=== PATIENT | female | born 1955 | race Caucasian/White ===

== ENCOUNTER 2022-07-19 19:24 | Inpatient (IN) | payer MEDICARE, BC ==
[~2022-07-19] VITALS: Ht 167.6 cm; Wt 68.2 kg
[2022-07-19 19:41] LABS: BASOPHILS % (AUTO) 0.6 % (0-1); EOSINOPHILS # (AUTO) 0.2 X10'3 (0-0.9); HEMATOCRIT 39.4 % (35.0-45.0); HEMOGLOBIN 13.4 g/dl (12.0-16.0); LYMPHOCYTES # (AUTO) 2.4 X10'3 (1.1-4.8); LYMPHOCYTES % (AUTO) 42.5 % (21-51); MEAN CORPUSCULAR HEMOGLOBIN 29.8 PG (27.0-31.0); MEAN CORPUSCULAR HGB CONC 34.1 g/dL (33.0-36.5); MEAN CORPUSCULAR VOLUME 87.5 FL (78-98); MONOCYTES # (AUTO) 0.7 X10'3 (0-0.9); MONOCYTES % (AUTO) 12.7 % (2-12); NEUTROPHILS # (AUTO) 2.3 X10'3 (1.8-7.7); NEUTROPHILS % (AUTO) 41.2 % (42-75); PLATELET COUNT 233 X10'3 (140-440); RED CELL DISTRIBUTION WIDTH 13.6 % (11.5-14.5); WHITE BLOOD COUNT 5.6 X10'3 (4.5-11.0)
[2022-07-19 19:56] LABS: GLUCOSE 82 MG/DL (70-104); SODIUM 142 MMOL/L (135-145)
[2022-07-19 19:57] LABS: ALANINE AMINOTRANSFERASE 23 U/L (12-78); ALBUMIN 3.7 G/DL (3.4-5.0); ALBUMIN/GLOBULIN RATIO 1.1 (1.1-1.5); ALKALINE PHOSPHATASE 59 IU/L (46-116); ANION GAP 7 (8-16); ASPARTATE AMINO TRANSFERASE 20 U/L (10-37); BILIRUBIN,TOTAL 0.2 MG/DL (0.1-1.0); BLOOD UREA NITROGEN 10 MG/DL (7-18); BUN/CREATININE RATIO 11.9 (10.0-20.0); CALCIUM 8.5 MG/DL (8.5-10.1); CHLORIDE 107 MMOL/L (99-107); CREATININE 0.84 MG/DL (0.40-0.90); POTASSIUM 3.6 MMOL/L (3.5-5.1); TOTAL CARBON DIOXIDE 28.5 MMOL/L (24-32); eGFR 67 ML/MIN
[2022-07-19 20:04] LABS: MAGNESIUM 2.2 MG/DL (1.5-2.4)
[2022-07-19] MEDS ORDERED: cloNIDine 0.1 mg tablet PO STA (20:04)
[2022-07-19] MEDS ORDERED: aspirin 81mg tab.chew PO ONE (21:10)
[2022-07-19] MEDS ORDERED: HYDROcodone/acetaminophen 5mg/325mg tablet PO PRN (21:40)
[2022-07-19] MEDS ORDERED: morphine 2 MG/ML inj. syringe IV PRN ×2 (21:40)
[2022-07-19] MEDS ORDERED: acetaminophen 325mg tablet PO PRN ×2 (21:40)
[2022-07-19] MEDS ORDERED: mag hydrox/Alum hydrox/simeth 30ml oral suspension PO PRN (21:40)
[2022-07-19] MEDS ORDERED: magnesium hydroxide 30ml (MOM) UD suspension PO PRN (21:40)
[2022-07-19] MEDS ORDERED: ondansetron/PF 4mg/2ml inj IV PRN (21:40)
--- NOTE | 2022-07-19 22:06 | NUR ---
Patient is resting comfortably, will be admitted.
[2022-07-19 22:17] LABS: CHOLESTEROL 271 MG/DL (0-200); HDL CHOLESTEROL 45 MG/DL (35-60); LDL CHOLESTEROL 182 MG/DL (50-100); TRIGLYCERIDES 162 MG/DL (20-135)
--- NOTE | 2022-07-19 23:00 | NUR ---
Patient up to bathroom w/o problem.
[2022-07-19] MEDS ORDERED: METO-411 PO (23:12)
[2022-07-19] MEDS ORDERED: ESOM20CA PO (23:12)
[2022-07-19 23:30] VITALS: BP 149/96
--- NOTE | 2022-07-19 23:45 | NUR ---
PAGER ID: [phone] MESSAGE: [id number] [id number] SUNITHA SANDERS PT REQUESTING HER NEXIUM TONIGHT MED REC NEEDS TO BE ADDRESSED ALSO NEURO WAS REQUESTING HER TO BE PUT ON PLAVIX AND HAVE MRI DONE KEVIN [id number]
--- NOTE | 2022-07-20 00:37 | NUR ---
DR SAENZ ORDERED A ONE TIME DOSE OF PATIENT'S NEXIUM PO 20MG AT PATIENT'S REQUEST FOR TONIGHT. DR SAENZ ALSO ORDERED UPON RECOMMENDATION OF TELE-NEUROLOGIST PLAVIX 75MG DAILY FOR [address] SAENZ WAS ALSO MADE AWARE THAT THE MED REC NEEDS TO BE ADDRESSED FOR THIS PATIENT.
[2022-07-20 05:00] VITALS: BP 134/79
--- NOTE | 2022-07-20 06:30 | NUR ---
Patient in room ORTHO 4024. I have received report from Kelin ORTEGA and had the opportunity to ask questions and assume patient care.
[2022-07-20 06:33] LABS: BASOPHILS % (AUTO) 0.6 % (0-1); EOSINOPHILS # (AUTO) 0.2 X10'3 (0-0.9); EOSINOPHILS % (AUTO) 3.8 % (0-6); HEMATOCRIT 36.5 % (35.0-45.0); HEMOGLOBIN 12.6 g/dl (12.0-16.0); LYMPHOCYTES # (AUTO) 1.9 X10'3 (1.1-4.8); MEAN CORPUSCULAR HEMOGLOBIN 30.2 PG (27.0-31.0); MEAN CORPUSCULAR HGB CONC 34.4 g/dL (33.0-36.5); MEAN CORPUSCULAR VOLUME 87.6 FL (78-98); MEAN PLATELET VOLUME 8.3 FL (7.4-10.4); MONOCYTES # (AUTO) 0.5 X10'3 (0-0.9); MONOCYTES % (AUTO) 11.2 % (2-12); NEUTROPHILS # (AUTO) 2.1 X10'3 (1.8-7.7); NEUTROPHILS % (AUTO) 44.4 % (42-75); PLATELET COUNT 197 X10'3 (140-440); RED BLOOD COUNT 4.16 X10'6 (4.20-5.60); RED CELL DISTRIBUTION WIDTH 13.3 % (11.5-14.5); WHITE BLOOD COUNT 4.7 X10'3 (4.5-11.0)
[2022-07-20 06:40] LABS: CHLORIDE 106 MMOL/L (99-107); GLUCOSE 101 MG/DL (70-104); POTASSIUM 3.6 MMOL/L (3.5-5.1); SODIUM 140 MMOL/L (135-145); TOTAL CARBON DIOXIDE 27.5 MMOL/L (24-32)
[2022-07-20 06:41] LABS: ALBUMIN 3.2 G/DL (3.4-5.0); ANION GAP 7 (8-16); BLOOD UREA NITROGEN 8 MG/DL (7-18); BUN/CREATININE RATIO 10.8 (10.0-20.0); CALCIUM 8.8 MG/DL (8.5-10.1); CHOL/HDL RATIO 5.2 (0.00-4.99); CHOLESTEROL 233 MG/DL (0-200); CREATININE 0.74 MG/DL (0.40-0.90); HDL CHOLESTEROL 45 MG/DL (35-60); LDL CHOLESTEROL 164 MG/DL (50-100); TRIGLYCERIDES 92 MG/DL (20-135); eGFR 78 ML/MIN
--- NOTE | 2022-07-20 07:09 | NUR ---
Problems reprioritized. Patient report given, questions answered & plan of care reviewed with JAMILA TOVAR.
[2022-07-20] MEDS: aspirin 325mg tablet, delayed-release (Ecotrin) PO SCH (08:00)
[2022-07-20] MEDS: docusate sod 100mg capsule PO SCH ×2 (08:00→19:34)
[2022-07-20] MEDS: pantoprazole 40mg Tablet.DR PO SCH ×2 (09:36→19:34)
[2022-07-20] MEDS: clopidogrel 75mg tablet PO SCH (09:37)
[2022-07-20] MEDS: metoprolol succinate 25mg (24-HOUR) SR. Tablet PO SCH (09:38)
[2022-07-20] MEDS ORDERED: iohexol 350MG/ML 100ml bottle IV ONE (10:33)
[2022-07-20] MEDS ORDERED: magnesium 4gm in 100ml NS 100 ML IV PRN (14:20)
[2022-07-20] MEDS ORDERED: potassium Cl 20 mEq SR tablet PO PRN ×2 (14:20)
[2022-07-20] MEDS ORDERED: potassium Cl 40MEQ/1/2NS 520ml 520 ML IV PRN (14:20)
[2022-07-20] MEDS ORDERED: magnesium 2GM in 50ml NS 50 ML IV PRN (14:20)
[2022-07-20] MEDS ORDERED: magnesium Cl slow-release 64mg tablet PO PRN (14:20)
[2022-07-20] MEDS: atorvastatin 20mg tablet PO SCH (15:49)
--- NOTE | 2022-07-20 17:00 | NUR ---
I have reviewed and confirmed interventions, assessments performed and documentation by Celina Landry LVN.
--- NOTE | 2022-07-20 17:25 | NUR ---
Patient alert. VSS. No acute changes this shift. Dr. Sharpe spoke to patient r/t allergies to Simvastatin and recommended Atorvastatin 40 mg PO. Patient aware of side affects to look for. Medication given at 1400 and patient has denied any adverse effects r/t to medication. All safety measures in place and call light and fresh water at bedside. Will continue to monitor.
[2022-07-20 18:00] VITALS: BP 146/94
--- NOTE | 2022-07-20 18:00 | NUR ---
Patient in room ORTHO 4024. I have received report from Celina MARINO and had the opportunity to ask questions and assume patient care.
[2022-07-20] MEDS: K and/or MAG REPLACEMENT MC SCH (19:10)
[2022-07-20] MEDS: heparin, porcine 5000 units/ml vial SQ SCH (19:35)
--- NOTE | 2022-07-20 20:00 | NUR ---
Pt ambulated 300 ft independently this evening. She tolerated this well
[2022-07-20 22:00] VITALS: BP 151/90
--- NOTE | 2022-07-21 06:05 | NUR ---
Problems reprioritized. Patient report given, questions answered & plan of care reviewed with Kari ORTEGA.
[2022-07-21 06:56] LABS: BASOPHILS % (AUTO) 0.6 % (0-1); EOSINOPHILS # (AUTO) 0.1 X10'3 (0-0.9); EOSINOPHILS % (AUTO) 3.2 % (0-6); HEMATOCRIT 38.9 % (35.0-45.0); HEMOGLOBIN 13.1 g/dl (12.0-16.0); LYMPHOCYTES # (AUTO) 1.8 X10'3 (1.1-4.8); LYMPHOCYTES % (AUTO) 43.8 % (21-51); MEAN CORPUSCULAR HEMOGLOBIN 29.5 PG (27.0-31.0); MEAN CORPUSCULAR HGB CONC 33.8 g/dL (33.0-36.5); MEAN CORPUSCULAR VOLUME 87.3 FL (78-98); MEAN PLATELET VOLUME 8.5 FL (7.4-10.4); MONOCYTES # (AUTO) 0.4 X10'3 (0-0.9); MONOCYTES % (AUTO) 10.8 % (2-12); NEUTROPHILS # (AUTO) 1.7 X10'3 (1.8-7.7); NEUTROPHILS % (AUTO) 41.6 % (42-75); PLATELET COUNT 212 X10'3 (140-440); RED BLOOD COUNT 4.45 X10'6 (4.20-5.60); RED CELL DISTRIBUTION WIDTH 13.6 % (11.5-14.5); WHITE BLOOD COUNT 4.2 X10'3 (4.5-11.0)
[2022-07-21 07:00] VITALS: BP 116/58
[2022-07-21 07:04] LABS: ALANINE AMINOTRANSFERASE 18 U/L (12-78); ALBUMIN 3.4 G/DL (3.4-5.0); ALBUMIN/GLOBULIN RATIO 1.1 (1.1-1.5); ALKALINE PHOSPHATASE 55 IU/L (46-116); ANION GAP 8 (8-16); ASPARTATE AMINO TRANSFERASE 19 U/L (10-37); BILIRUBIN,TOTAL 0.4 MG/DL (0.1-1.0); BLOOD UREA NITROGEN 8 MG/DL (7-18); BUN/CREATININE RATIO 9.4 (10.0-20.0); CALCIUM 8.8 MG/DL (8.5-10.1); CHLORIDE 106 MMOL/L (99-107); CREATININE 0.85 MG/DL (0.40-0.90); GLUCOSE 99 MG/DL (70-104); MAGNESIUM 2.3 MG/DL (1.5-2.4); PHOSPHORUS 4.6 MG/DL (2.3-4.5); POTASSIUM 3.6 MMOL/L (3.5-5.1); SODIUM 142 MMOL/L (135-145); TOTAL CARBON DIOXIDE 27.9 MMOL/L (24-32); TOTAL PROTEIN 6.4 G/DL (6.4-8.2); eGFR 67 ML/MIN
--- NOTE | 2022-07-21 07:04 | NUR ---
Patient in room ORTHO 4024. I have received report from MICH ORTEGA and had the opportunity to ask questions and assume patient care.
[2022-07-21] MEDS: heparin, porcine 5000 units/ml vial SQ SCH (08:00)
[2022-07-21] MEDS: K and/or MAG REPLACEMENT MC SCH (08:00)
[2022-07-21] MEDS: clopidogrel 75mg tablet PO SCH (08:54)
[2022-07-21] MEDS: aspirin 325mg tablet, delayed-release (Ecotrin) PO SCH (08:54)
[2022-07-21] MEDS: docusate sod 100mg capsule PO SCH (08:54)
[2022-07-21] MEDS: metoprolol succinate 25mg (24-HOUR) SR. Tablet PO SCH (08:54)
[2022-07-21] MEDS: pantoprazole 40mg Tablet.DR PO SCH (08:54)
[2022-07-21] MEDS: atorvastatin 20mg tablet PO SCH (08:54)
[2022-07-21 10:00] VITALS: BP 167/99
[2022-07-21] MEDS ORDERED: amLODIPine 5mg tablet PO SCH (10:40)
[2022-07-21 11:10] VITALS: BP_SYST 175
[2022-07-21] MEDS ORDERED: NOR5T PO (12:09)
[2022-07-21] MEDS ORDERED: ATOR20TA66 PO (12:09)
[2022-07-21] MEDS ORDERED: CLOP75TA34 PO (12:09)
[2022-07-21] MEDS ORDERED: ASPI-1071 PO (12:09)
--- NOTE | 2022-07-21 14:30 | NUR ---
patient medicated x1 for headache with good result. patients B/P elevated 177/105. Dr Cote aware ordered norvasc 5mg given to patient . Seen by DR cote is for discharge. All DC instructions given to patient. Patient DC home via private car with spouse in stable condition.
== END 2022-07-21 13:15 | disposition home or self-care (01) | DRG 69 ==
LOC: ER 19:24 → ED HOLD 21:53 → SUR 3N 23:23 → ORTHO 4S 07-20 10:15
PROVIDERS: ADMIT Internal Medicine; ATTEND Family Medicine
PROC: B3251ZZ Computerized Tomography (CT Scan) of Bilateral Common Carotid Arteries using Low Osmolar Contrast (ICD-10-PCS; principal; 2022-07-20)
PROC: B32G1ZZ Computerized Tomography (CT Scan) of Bilateral Vertebral Arteries using Low Osmolar Contrast (ICD-10-PCS; 2022-07-20)
PROC: B32R1ZZ Computerized Tomography (CT Scan) of Intracranial Arteries using Low Osmolar Contrast (ICD-10-PCS; 2022-07-20)
PROC: B3281ZZ Computerized Tomography (CT Scan) of Bilateral Internal Carotid Arteries using Low Osmolar Contrast (ICD-10-PCS; 2022-07-20)
DX: G45.9 Transient cerebral ischemic attack, unspecified (principal); I10 Essential (primary) hypertension; E78.5 Hyperlipidemia, unspecified; K21.9 Gastro-esophageal reflux disease without esophagitis; Z88.5 Allergy status to narcotic agent; Z88.8 Allergy status to other drugs, medicaments and biological substances; Z79.899 Other long term (current) drug therapy; Z79.82 Long term (current) use of aspirin
CPT/HCPCS: 36415; 70450; 70496; 70498; 70551; 71045; 80048; 80053; 80061; 83036; 83735; 83880; 84100; 84484; 85025; 85651; 87081; 93005; 93306; 97530; 99285; G0378; J1644; J3490; J7030; Q9967

== ENCOUNTER 2024-11-01 08:23 | Inpatient (IN) | payer MEDICARE, BC ==
[~2024-11-01] VITALS: Ht 167.6 cm; Wt 71.0 kg
[~2024-11-01 08:23] MED LIST: ASPI-1071 PO; ATOR20TA66 PO; CLOP75TA34 PO; ESOM20CA PO; METO-411 PO; NOR5T PO
--- NOTE | 2024-11-01 08:35 | Physician Documentation ---
History of Present Illness ~ Chief Complaint: Numbness Stated Complaint: LEG AND ARM NUMBNESS Time Seen by MD: 08:52 OK to notify your PCP?: Yes Primary Medical Doctor: Dr. Lee Source: patient, RN/MD, RN notes reviewed, old records Exam Limitations: no limitations HPI This is a 69-year-old female who presents to the emergency department due to concerns for paresthesia. She reports that she felt normal this morning when she woke up and was getting ready for work, and then she then had onset of paresthesia to the feet and hands that she feels is climbing upward from her feet. She denies any pain. She denies any chest pain, shortness of breath. Does note that she had COVID a few weeks ago. Patient also tells me she had some left facial numbness left upper extremity numbness as well as some numbness to the right lower extremity however the patient seems to have some generalized weakness to her lower extremity and weakness to her left upper arm. She denies any facial droop. She states this is just like her prior episode of a stroke except that time it was clearly one- sided. She feels some generalized weakness and does not feel well. Medication Reconciliation Allergies: Coded Allergies: codeine (Unverified Allergy, Unknown, 07/19/22) hives,headache,vomiting,hypotension. meperidine (Unverified Allergy, Unknown, 07/19/22) nausea,vomiting,dizziness,lightheaded pentazocine (Unverified Allergy, Unknown, 07/19/22) nausea,vomiting,dizziness,lightheaded Uncoded Allergies: ALL NARCOTICS (Allergy, Unknown, 07/19/22) nausea,vomiting,dizziness,lightheaded. Scheduled Amlodipine Besylate (Amlodipine Besylate), 5 MG PO DAILY Aspirin (Ecotrin*), 1 TAB PO Q24H Atorvastatin Calcium (Atorvastatin Calcium), 40 MG PO DAILY Clopidogrel Bisulfate (Clopidogrel), 75 MG PO DAILY Esomeprazole Magnesium (Nexium), 1 CAP PO BID, (Reported) Metoprolol Succinate (Metoprolol Succinate), 1 TAB PO DAILY, (Reported) Past Medical History Past Medical History: *CARDIOVASCULAR* Past Surgical History: noncontributory Alcohol Use: None Lives with: Spouse Lives In: Home Review of Systems All Other Systems at this time: Reviewed and Negative Physical Exam Vital Signs: RN Vital Signs have been reviewed: Yes, Temperature: 97.9, Source: Temporal, Heart Rate: 61, Respiratory Rate: 16, BP: 178/88, Pulse Oximetry: 99, Weight: 71.000 Oxygen Flow Rate: 0 General Appearance General: The patient is well developed, well nourished, nontoxic appearing and is in no acute distress. Skin: [place], warm and dry with no rashes. HEENT: Head was normocephalic and atraumatic. Eyes - pupils equal, round, reactive to light and accommodation. Extraocular movements were intact. Conjunctivae were nonicteric. . The mouth and oropharynx were clear with moist mucous membranes. There were no pharyngeal exudates Neck: Supple and nontender. There was no jugular venous distention, lymphadenopathy, thyromegaly or masses. Chest: Clear to auscultation bilaterally without wheezes, rales or rhonchi. No accessory muscle use. No dullness to percussion. Heart: Rate regular and rhythmic. S1, S2. No murmurs. Palpation of the chest wall was normal. No rubs or thrills. Abdomen: Soft, nontender and nondistended. Positive bowel sounds. No guarding or rebound. No hepatosplenomegaly or palpable masses. Extremities: No cyanosis, clubbing or edema. The patient moves all extremities. Pulses were equal and symmetric. Neurologic: Cranial nerves II-XII were intact. Sensation was intact to light touch throughout. Motor strength was 5/5 in all four extremities. Deep tendon reflexes were intact in both upper and lower extremities. Patient reports weakness to the left upper extremity and lower extremities bilaterally. Also facial numbness to V2 and V3 have resolved feels slightly weak in the face but no speech changes or no tongue deviation. Psychologic: The patient was oriented to person, place and time. The patient demonstrated appropriate judgement and insight. Progress Progress Note 0838: Consultation with SIS Chandra, who recommends labs, head CT. Results/Orders Reviewed/noted all lab results: Yes Results/Orders Orders - NAA CHANDRA MD [place] Prov.Neuro Consult (11/01/24 13:38) Page Hospitalist (11/01/24 15:14) Fill Out Med Reconciliation (11/01/24 15:14) Page Hospitalist (11/01/24 15:14) Fill Out Med Reconciliation (11/01/24 15:14) Completed Orders - NAA CHANDRA MD Hs Troponin I W Calculations (11/01/24 13:57) Vital Signs 11/01/24 11/01/24 11/01/24 11/01/24 08:26 09:04 09:15 15:28 Temp 97.9 Pulse 61 57 Resp 16 10 16 16 B/P (MAP) 178/88 173/106 (128) Pulse Ox 99 97 O2 Flow Rate 0 0 Laboratory Tests Test 11/01/24 08:55 11/01/24 09:00 11/01/24 14:02 White Blood Count 4.3 L Red Blood Count 4.47 Hemoglobin 13.5 Hematocrit 39.3 Mean Corpuscular Volume 87.8 Mean Corpuscular Hemoglobin 30.1 Mean Corpuscular Hemoglobin Concent 34.3 Red Cell Distribution Width 13.2 Platelet Count 239 Mean Platelet Volume 8.6 Neutrophils (%) (Auto) 45.0 Lymphocytes (%) (Auto) 38.0 Monocytes (%) (Auto) 12.4 H Eosinophils (%) (Auto) 3.4 Basophils (%) (Auto) 1.2 H Neutrophils # (Auto) 1.9 Lymphocytes # (Auto) 1.6 Monocytes # (Auto) 0.5 Eosinophils # (Auto) 0.1 Basophils # (Auto) 0.1 CBC Comment Erythrocyte Sedimentation Rate 13 Sodium Level 143 Potassium Level 3.8 Chloride Level 105 Carbon Dioxide Level 30.1 Anion Gap 8 Blood Urea Nitrogen 4 L Creatinine 0.91 H Estimated GFR/1.73 m2 61 BUN/Creatinine Ratio 4.4 L Glucose Level 98 Calcium Level 8.9 Total Bilirubin 0.8 Aspartate Amino Transf (AST/SGOT) 27 Alanine Aminotransferase (ALT/SGPT) 29 Alkaline Phosphatase 80 Troponin I High Sensitivity 11 12 C-Reactive Protein < 0.05 Total Protein 7.3 Albumin 3.7 Globulin 3.6 Albumin/Globulin Ratio 1.0 L Chemistry Comments Ethyl Alcohol Level < 10 Urine Specimen Description Cln catch midstream Urine Color Straw Urine Clarity Clear Urine pH 7.0 Urine Specific [place] <=1.005 Urine Protein Negative Urine Glucose (UA) Negative Urine Ketones Negative Urine Occult Blood Negative Urine Nitrite Negative Urine Bilirubin Negative Urine Urobilinogen 0.2 Urine Leukocyte Esterase Negative Urine Culture Indicated Not ind Volume Urine Centrifuged 10 ml Urine Comment Urine Opiates Screen Negative Urine Methadone Screen Negative Urine Fentanyl Screen Negative Urine Barbiturates Screen Negative Urine Phencyclidine Screen Negative Urine Amphetamines Screen Negative Urine Benzodiazepines Screen Negative Urine Cocaine Screen Negative Urine Cannabinoids Screen Negative Drug Screen Comment Troponin I High Sens Percent Delta 9 Troponin I Hi Sens Absolute Change 1 Re-Evaluation Re-Evaluation : Re-Evaluation: Improved Progress Patient has been improving in that her numbness has improved but she still complains of some residual numbness and weakness but her laboratory work is also reassuring. Patient's CBC is within normal limits no anemia no signs of infection white count slightly low at 4.3 otherwise within normal limits. Chemistry shows normal laboratory work normal LFTs troponin is also negative. Second troponin has been ordered. Tox screen is also negative. Patient's urinalysis is negative for dehydration but also negative for a urinary tract infection. Patient was placed on a monitor for which she is slightly hypertensive But no arrhythmias. Continuous air hose coupler interpretation shows normal sinus rhythm heart rate 60s, no ectopy, normal, my interpretation. Pulse oximetry monitor interpretation shows normal oxygenation at 98% room air, normal, my interpretation. Prior to discharge patient was still having some vague symptoms. I requested a tele neurology consultation which then recommended patient should have an MRI of the C-spine brain as well as additional laboratory work such as B12 and thyroid function. Recommended starting a dose of aspirin and Plavix. This was discussed with the hospitalist service who just wrote the orders. Patient was then admitted to the hospitalist service for further workup and care. Case was discussed at 3:30 p.m.. EKG/XRAY/CT/US/VASC/MRI EKG : Intepreting Monitor?: Yes Additional Comment [facility] Test Date: 2024-11-01 Test Time: 08:50:30 Pat Name: SUNITHA SANDERS Department: [facility] Patient ID: [id number] Room: Gender: F Workers Compensation Claims Analyst: : 1955 Requested By: KACI LIN Order Number: [id number] Elida MD: Dr. Naa Chandra Measurements Intervals [place] Rate: 56 P: 46 MI: 177 QRS: 65 QRSD: 93 T: 68 QT: 460 QTc: 444 Interpretive Statements Sinus bradycardia Minimal ST depression, diffuse leads Electronically Signed On 11-01-2024 9:40:[address] Naa Chandra Please click the below link to view image of tracing. CT : Interpreted By: self Impression CT CT HEAD INDICATION: parasthesia EXAM DATE: 11/01/2024 09:02 AM COMPARISON: MRI HEAD on DOS: 07/20/22, CT STROKE ALERT on DOS: 07/19/22 RADIATION DOSE: CTDIvol: 50 mGy, DLP: 874 mGy*cm PROCEDURE: CT scans of the head were obtained from the vertex to the skull base. Sagittal and coronal reconstructions were provided. All CT scans at this medical facility are performed using dose modulation techniques as appropriate to a performed exam including the following: Automated exposure control was utilized; adjustment of the MA and/or KV according to patient size; and use of iterative reconstruction technique. FINDINGS: There is sulcal and ventricular prominence. The brainshows normal morphology and wilson-white matter differentiation, without intracranial hemorrhage, extra-axial fluid collection, mass effect or acute large vessel infarct. The ventricles are normal in size. The basal cisterns are patent. The skull and visible facial bones are intact. The paranasal sinuses, mastoid air cells and middle ear cavities are well-aerated. The soft tissues of the scalp are unremarkable. IMPRESSION: No acute intracranial abnormality. Medical Decision Making Additional info obtained from: old records Differential Dx:Considerations: Include: Mejias's Palsey, CVA, Electrolyte imbalance, Hypoglycemia, Subarachnoid Hemorrhage, TIA, Other Departure Disposition: ADMITTED INPATIENT Admitted to Inpatient Unit: yes, to hospitalist Admission Level of Care: Neuro with Tele Impression: Primary Impression: TIA (transient ischemic attack) Additional Impression: Generalized weakness Condition: Guarded Referrals: NO PRIMARY CARE PROVIDER (PCP) Education Educated: Patient Educated regarding: diagnosis Critical Care Note Total Time (mins): 30 Critical Care Note The very real possibility of a deterioration of this patient's condition required the highest level of my preparedness for sudden, emergent intervention. I provided critical care services, which included medication orders, frequent reevaluations of the patient's condition and response to treatment, ordering and reviewing test results, and discussing the case with various consultants. Exclu alexandru time spent performing separately billable procedures. The critical care time associated with the care of the patient was. 30 minutes Signature Scribe Signature: . Attestation: The note accurately reflects work and decisions made by me.Naa Chandra MD 11/01/24 13:52 KACI LIN NP Nov 01, 2024 08:35 NAA CHANDRA MD Nov 01, 2024 13:53
--- NOTE | 2024-11-01 08:52 | ELECTROCARDIOGRAPH REPORT ---
[facility] Test Date: 2024-11-01 Test Time: 08:50:30 Pat Name: SUNITHA SANDERS Department: [facility] Patient ID: [facility]-[id number] Room: Gender: F Conference Service Coordinator: : 1955 Requested By: KACI LIN Order Number: [id number] Reading MD: Dr. Epi Chandra Measurements Intervals [place] Rate: 56 P: 46 [place]: 177 QRS: 65 QRSD: 93 T: 68 QT: 460 QTc: 444 Interpretive Statements Sinus bradycardia Minimal ST depression, diffuse leads Electronically Signed On 11-01-2024 9:40:[address] Epi Chandra Please click the below link to view image of tracing.
[2024-11-01 09:14] LABS: MEAN PLATELET VOLUME 8.6 FL (7.4-10.4); RED CELL DISTRIBUTION WIDTH 13.2 % (11.5-14.5)
[2024-11-01 09:15] LABS: LEUKOCYTE ESTERASE ,URINE NEGATIVE (Neg); NITRITES, URINE NEGATIVE (Neg); OCCULT BLOOD,URINE NEGATIVE (Neg)
--- NOTE | 2024-11-01 09:24 | RADIOLOGY REPORT ---
CT CT HEAD INDICATION: parasthesia EXAM DATE: 11/01/2024 09:02 AM COMPARISON: MRI HEAD on DOS: 07/20/22, CT STROKE ALERT on DOS: 07/19/22 RADIATION DOSE: CTDIvol: 50 mGy, DLP: 874 mGy*cm PROCEDURE: CT scans of the head were obtained from the vertex to the skull base. Sagittal and coronal reconstructions were provided. All CT scans at this medical facility are performed using dose modulation techniques as appropriate t o a performed exam including the following: Automated exposure control was utilized; adjustment of th e MA and/or KV according to patient size; and use of iterative reconstruction technique. FINDINGS: There is sulcal and ventricular prominence. The brainshows normal morphology and wilson-whi te matter differentiation, without intracranial hemorrhage, extra-axial fluid collection, mass effect or acute large vessel infarct. The ventricles are normal in size. The basal cisterns are patent. The skull and visible facial bones are intact. The paranasal sinuses, mastoid air cells and middle ear c avities are well-aerated. The soft tissues of the scalp are unremarkable. IMPRESSION: No acute intracranial abnormality.
[2024-11-01 09:30] LABS: URINE AMPHETAMINE SCREEN NEGATIVE (Neg); URINE BARBITUATE SCREEN NEGATIVE (Neg); URINE BENZODIAZEPINES SCREEN NEGATIVE (Neg); URINE CANNABINOID SCREEN NEGATIVE (Neg); URINE COCAINE SCREEN NEGATIVE (Neg); URINE METHADONE SCREEN NEGATIVE (Neg); URINE OPIATE SCREEN NEGATIVE (Neg); URINE PHENCYCLIDINE SCREEN NEGATIVE (Neg)
[2024-11-01 09:33] LABS: CREATININE 0.91 MG/DL (0.40-0.90); ETHANOL < 10 MG/DL (<10); TOTAL CARBON DIOXIDE 30.1 MMOL/L (24-32); eCRCL 54 ML/MIN; eGFR 61 ML/MIN
[2024-11-01 09:34] LABS: UA COLLECTION TYPE CLN CATCH MIDSTREAM
--- NOTE | 2024-11-01 15:07 | [facility] CONSULT REPORT ---
[facility] Procedure Note [facility] Procedure Note Consult [facility] Note # Demographics Consult Type: General Neurology Patient Location: Emergency Room First Name: SUNITHA Last Name: TOMMY Date of : 1955 Age: 69 Gender: Female Facility: [facility] Time of Initial Page (): 11/01/2024 13:45 First Contact with Site (): 11/01/2024 13:45 # HPI Chief Complaint: - weakness (generalized) History: 69 y/o F with a PMHx of TIA, stroke in the past presented today with numbness in her face/LUE and b/l LE, which has resolved and now she is stating she feels weakness in her LUE and b/l LE. She says the numbness was in the V2-V3 distribution on the L side of her face, entire LUE, LLE and RLE up until the mid calf. She states her symptoms began this morning when she woke up. She states the same thing happened one week ago. She has some neck tingling and small posterior headache. She denies vision change or speech change. She has a history of lumbar spine surgery. # Scores Time of exam and NIHSS (): 11/01/2024 14:40 Level of Consciousness 1a: [0] = Alert; keenly responsive LOC Questions 1b: [0] = Answers both questions correctly LOC Commands 1c: [0] = Performs both tasks correctly Best Gaze 2: [0] = Normal Visual 3: [0] = No visual loss Facial Palsy 4: [0] = Normal symmetrical movements Motor Arm Left 5a: [0] = No drift Motor Arm Right 5b: [0] = No drift Motor Leg Left 6a: [0] = No drift Motor Leg Right 6b: [0] = No drift Limb Ataxia 7: [0] = Absent Sensory 8: [0] = Normal Best Language 9: [0] = No aphasia Dysarthria 10: [0] = Normal Extinction and Inattention 11: [0] = No abnormality NIHSS Total: 0 # Exam SBP: 173 DBP: 106 # PMH-FH-SH Medications: - antihypertensive - aspirin - plavix - lipid lowering agent # Data Head CT: - no bleed - per radiologist read # Assessment Impression: - Other Numbness-etiology less likely stroke given b/l distribution of symptoms, may be due to cervical radiculopathy vs. uncontrolled HTN # Plan Labs: - CBC - comprehensive metabolic panel - B12 - TSH - troponin - hemoglobin A1c Imaging: (urgency: routine): - MRI Brain without contrast - MRI C spine - MR Angiogram Neck with contrast - MR Angiogram Head without contrast Medication: - aspirin 81 mg daily - clopidogrel (Plavix) 75 mg daily - start statin with goal of LDL < 70 Other: - If patient has any neurological deterioration please call me back immediately - would not pursue stroke work-up if MRI is negative - telemetry monitoring - I have discussed my recommendations with the referring provider - LDL < 70 - neurology referral as outpatient Disposition: admit # Logistics Attestation of consult completion: The patient is located at: [facility]. Facility staff participated in the visit. I performed this telemedicine visit from my offsite office utilizing interactive 2 way audio and visual telecommunication technology at the request of the onsite emergency room provider. Total time spent in telemedicine encounter: I spent 25 minutes reviewing clinical data and/or imaging, obtaining history, examining the patient, communicating with the onsite care team, and in preparation of this report. # Demographics First Name: SUNITHA Last Name: TOMMY Facility: [facility] Electronically signed at 11/01/2024 15:06 ([place] Time) by Reba Alaniz MD Neuro Consult Order placed for: Yes REBA ALANIZ MD Nov 01, 2024 15:07
[2024-11-01] MEDS ORDERED: mag hydrox/Alum hydrox/simeth 30ml oral suspension PO PRN (15:35)
[2024-11-01] MEDS ORDERED: magnesium Cl slow-release 64mg tablet PO PRN (15:35)
[2024-11-01] MEDS ORDERED: magnesium sulf-water 4G/100mL 100 ML IV PRN (15:35)
[2024-11-01] MEDS ORDERED: ondansetron/PF 4mg/2ml inj IV PRN (15:35)
[2024-11-01] MEDS ORDERED: magnesium hydroxide 30ml (MOM) UD suspension PO PRN (15:35)
[2024-11-01] MEDS ORDERED: magnesium sulf-water 2g/50mL 50 ML IV PRN (15:35)
[2024-11-01] MEDS ORDERED: potassium Cl 40MEQ/1/2NS 520ml 520 ML IV PRN (15:35)
[2024-11-01] MEDS ORDERED: potassium Cl 20 mEq SR tablet PO PRN (15:35)
[2024-11-01] MEDS: aspirin 81mg, enteric-coated 1 TAB TABLET.DR PO SCH (15:40)
[2024-11-01] MEDS ORDERED: normal saline 1000ml 1,000 ML IV SCH (15:50)
--- NOTE | 2024-11-01 16:42 | HISTORY AND PHYSICAL-Residence ---
History & Physical Providers to CC Resident Creating Document: SUSAN MOHAN, RES ~ History of Present Illness Primary Medical Doctor: Dr. Lee Reason for Admit\Complaint: Numbness/weakness History of Present Illness 69 years old female with history of hypertension dyslipidemia GERD, TIA, chronic back pain status post lumbar laminectomy, presented to the ED due to face and extremity weakness/numbness. She reported at 7:00 a.m. she experienced tingling, numbness in her left upper extremity, left side of for her face and gradually she noticed numbness and weakness in her bilateral lower extremity. She reported she was little bit off balance. And her symptoms last until this afternoon. Most of her symptoms resolved but she still haslower extremity tingling. She denied any slurred speech, blurry vision, double vision, face asymmetry, lightheaded, dizziness, changing in smells, palpitation. She reported one week ago she has similar symptoms in the evening and she went to bed and wake up with no symptoms. She also had history of similar symptoms two years back admitted in our hospital for TIA, CVA workup was negative Allergies: Coded Allergies: codeine (Unverified Allergy, Unknown, 07/19/22) hives,headache,vomiting,hypotension. meperidine (Unverified Allergy, Unknown, 07/19/22) nausea,vomiting,dizziness,lightheaded pentazocine (Unverified Allergy, Unknown, 07/19/22) nausea,vomiting,dizziness,lightheaded Uncoded Allergies: ALL NARCOTICS (Allergy, Unknown, 07/19/22) nausea,vomiting,dizziness,lightheaded. Home Medications Home Medications Active Ecotrin* (Aspirin) 81 Mg Tablet. 1 Tab PO Q24H Amlodipine Besylate 5 Mg Tablet 5 Mg PO DAILY Atorvastatin Calcium 20 Mg Tablet 40 Mg PO DAILY Clopidogrel (Clopidogrel Bisulfate) 75 Mg Tablet 75 Mg PO DAILY Do not stop medication unless instructed by prescriber. Reported Nexium (Esomeprazole Magnesium) 20 Mg Capsule. 1 Cap PO BID 30 Days Metoprolol Succinate 100 Mg Tab.sr.24h 1 Tab PO DAILY Past Medical History Past Medical History Hypertension TIA Scoliosis Chronic back pain status post back surgery laminectomy L4-L5 in 2023 Past Surgical History Surgical History Comment Laminectomy L4-L5 in 2023 Inguinal hernia 1975 Tonsillectomy Family History Family History: FH: heart attack (Mother,) FH: pancreatic cancer (Father,) Past Social History Smoking: Non-Smoker Alcohol Use: None Lives with: Spouse Lives In: Home ROS ROS - CONSTITUTIONAL: Denies weight loss, fever and chills. - HEENT: Denies changes in vision and hearing. - RESPIRATORY: Complains of wheezing, denies SOB and cough. - CV: Denies palpitations and CP. - GI: Complaining of abdominal pain, denies nausea, vomiting and diarrhea. - : Denies dysuria and urinary frequency. - MSK: Denies myalgia and joint pain. - SKIN: Denies rash and pruritus. - NEUROLOGICAL: Has HPI - PSYCHIATRIC: Denies recent changes in mood. Denies anxiety and depression. Exam Vitals: Vital Signs Date Time Temp Pulse Resp B/P (MAP) Pulse Ox O2 Delivery O2 Flow Rate FiO2 11/01/24 16:09 59 16 145/90 (108) 96 0 11/01/24 08:26 97.9 General: General: Awake and Alert, no acute distress. HEENT: Conjunctiva pink, Sclera clear, Mucus Membranes moist. Neck: Supple without masses and tenderness. Resp: Lungs clear to auscultation bilaterally. Heart: Regular Rate and rhythm, normal S1 and S2 Abdomen: Soft and non tender no organomegaly Extremities: No cyanosis,clubbing or edema. Skin: Warm and Dry. Neurological: Speech is clear, alert, and oriented x 4, no gross neurological deficits Strength upper and lower extremity 5/5, sensation symmetric bilaterally [id number] normal Extraocular movement intact, visual field normal Negative Babinski Symmetric reflexes 1+ elbow, ankle, patellar Diagnostic Data Last Recorded Lab Results: 11/01/24 0855 11/01/24 0855 Advance Care Planning Advanced Care plannin - 30 Minutes Additional Plan 69 years old female with history of hypertension, TIA, chronic back pain status post laminectomy presented to the ED with numbness of her left upper extremity and left side of face associated with bilateral lower extremity weakness and numbness. Patient admitted with following workup and treatment Weakness/numbness Stroke workup started Possible TIA NIHSS 0 [facility] consulted who recommended brain MRI, MRI C-spine, MR angio neck W contrast and MR angio head w/o contrast Head CT: No acute intracranial abnormality. Urine tox is negative TSH normal, vitamin B12, hemoglobin A1c, lipid panel is pending As imaging department we do not have the power injector for MRA WITH CONTRAST MRI of the brain and C-spine, CTA ordered which is pending Restarted aspirin, clopidogrel 75 mg started today as neurology recommendation We will continue atorvastatin 80 mg ECHO cardiography pending Essential Hypertension Patient is taking losartan 50 mg daily, amlodipine 5 mg daily, metoprolol 100 mg daily On admission blood pressure was 158/88, she received blood pressure medication at home Numbness/weakness Symptoms less likely due to be stroke due to bilateral symptoms, possibly due to radiculopathy We will continue follow-up and start blood pressure medication from tomorrow Permissive hypertension for today, his systolic blood pressure is more than 180 please call MD Code Status: Full DVT prophylaxis: Lovenox Analgesia/sedation: none Line/tube: peripheral GI prophylaxis: Protonix Nutrition: Regular after passed swallow eval PT: Yes Prognosis: Guarded Disposition: Continue monitoring patient in ortho floor with telemetry, pending MRI CTA Susan Mohan MD Internal Medicine Resident Date of Service: Nov 01, 2024 Billing Provider: NAMITA SAENZ MD Common Visit Codes: 11505-MAOUMGS INP/OBS CARE (HIGH) Secondary Visit Codes: 18443-FOIVIPRI CARE PLAN 30 MINUTES SUSAN MOHAN, SALVATORE Nov 01, 2024 16:42 NAMITA SAENZ MD Nov 03, 2024 07:07
[2024-11-01] MEDS ORDERED: LOSA-415 PO (17:03)
[2024-11-01] MEDS ORDERED: ATOR-429 PO (17:04)
[2024-11-01 17:35] VITALS: BP 171/85; PULSE 58; RESP 14; TEMP 98.2; O2SAT 98
[2024-11-01] MEDS: normal saline 1000ml 1,000 ML IV SCH (17:58)
--- NOTE | 2024-11-01 19:42 | RADIOLOGY REPORT ---
EXAM: CT CTA NECK/HEAD CLINICAL HISTORY: Extremity weakness and numbness left-sided numbness and tingling TECHNIQUE: CT angiogram of the head and neck was performed without and with intravenous contrast. 100 ml of 50 was administered intravenously. 3D MIP reconstructed images were created and archived on [employer] PACS system. This exam was performed according to our departmental dose optimization program. Up-to -date CT equipment and radiation dose reduction techniques are utilized as appropriate. COMPARISON: CT CT HEAD on DOS: 11/01/24, MRI HEAD on DOS: 07/20/22, CT STROKE ALERT on DOS: 07/19/22 FINDINGS: CTA head: origin of the right [employer]. Mild calcified plaque in the bilateral cavernous and supraclinoid ICAs . Atresia of the right A1 segment. The distal internal carotid, vertebral, and basilar arteries are p atent without focal narrowing or occlusion. The anterior, middle, and posterior cerebral arteries are patent without focal narrowing. No aneurysm or arteriovenous malformation is identified. CTA neck: The aortic arch vessel origins are widely patent. There is mild mixed atherosclerotic plaque in the a ortic arch. The common carotid and cervical portions of the internal carotid and vertebral arteries a re patent without focal narrowing according to NASCET criteria. Minor calcified plaque in the bilater al carotid bifurcations. No aneurysm, AVM, or dissection is identified. The cervical soft tissues are unremarkable. The paranasal sinus and mastoid air cells are clear. The lung apices are clear. Mild multilevel cervical spondylosis. IMPRESSION: Widely patent arteries in the head and neck without large vessel occlusion, aneurysm, dissection, sig nificant stenosis, or AVM.
[2024-11-01] MEDS: K and/or MAG REPLACEMENT MC SCH (20:00)
[2024-11-01] MEDS: docusate sod 100mg capsule PO SCH (21:26)
[2024-11-01 22:00] VITALS: BP 162/93; PULSE 60; RESP 16; TEMP 98; O2SAT 97
[2024-11-02 00:01] VITALS: O2SAT 97
[2024-11-02 02:00] VITALS: BP 138/75; PULSE 53; RESP 16; TEMP 98.1; O2SAT 95
--- NOTE | 2024-11-02 02:58 | RADIOLOGY REPORT ---
EXAM: MR MRI HEAD HISTORY: Extremity weakness, numbness TECHNIQUE: Multiplanar and multisequence MR imaging of the head was performed. COMPARISON: CT CTA NECK/HEAD on DOS: 11/01/24, CT CT HEAD on DOS: 11/01/24, MRI HEAD on DOS: 07/20/22 FINDINGS: Mild cerebral volume loss with concordant prominence of the subarachnoid spaces and ventricles. There is patchy FLAIR hyperintensity throughout the supratentorial and pontine white matter consistent wit h nonspecific white matter disease. There is no midline shift or mass effect. The vascular flow-voids are unremarkable. Diffusion weighted imaging is not indicative of acute or recent infarct. Prior ocu lar lens replacement. IMPRESSION: No acute or recent infarct. Mild cerebral volume loss and mild chronic microvascular ischemic change.
[2024-11-02 05:58] LABS: MEAN PLATELET VOLUME 8.4 FL (7.4-10.4); RED CELL DISTRIBUTION WIDTH 13.3 % (11.5-14.5)
[2024-11-02 06:00] VITALS: BP 131/77; PULSE 53; RESP 15; TEMP 97.9; O2SAT 96
[2024-11-02 06:11] LABS: CHOL/HDL RATIO 3.1 (0.00-4.99); CREATININE 0.88 MG/DL (0.40-0.90); LDL CHOLESTEROL 83 MG/DL (50-100); TOTAL CARBON DIOXIDE 28.0 MMOL/L (24-32); eCRCL 56 ML/MIN; eGFR 64 ML/MIN
[2024-11-02 08:00] VITALS: RESP 16; O2SAT 97
[2024-11-02] MEDS: potassium Cl 20 mEq SR tablet PO PRN (08:10)
[2024-11-02] MEDS: enoxaparin 40mg/0.4ml syringe SUBCUT SCH (08:12)
[2024-11-02 10:00] VITALS: BP 140/78; PULSE 61; RESP 16; TEMP 98.4; O2SAT 97
--- NOTE | 2024-11-02 11:02 | RADIOLOGY REPORT ---
CLINICAL HISTORY: Extremity weakness, numbness TECHNIQUE: MRI of the cervical spine was performed without gadolinium. COMPARISON: CT CTA NECK/HEAD on DOS: 11/01/24, CT CT HEAD on DOS: 11/01/24, MRI HEAD on DOS: 07/20/22 FINDINGS: The alignment of the cervical spine is normal. There is a C5 vertebral body Hemangioma. The vertebral body heights are maintained. There is no significant intervertebral displaced loss. There is no abno rmal cord signal. The C2-C3 disc space is unremarkable. At C3-C4, a small posterior disc protrusion partially partially effaces the ventral CSF. At C4-C5, a posterior disc osteophyte complex partially effaces the ventral CSF. Right uncovertebra l hypertrophy results in mild right neuroforaminal narrowing. At C5-C6, a posterior disc osteophyte complex approaches and may about the right ventral cord. At C6-C7, a posterior disc osteophyte complex approaches and may but the ventral cord. At C7-T1, a posterior disc protrusion participated the mental CSF. IMPRESSION: C5-C6 and C6-C7 posterior disc osteophyte complexes approach and may about the ventral cord. No abnor mal cord signal. Mild right C4-C5 neuroforaminal narrowing.
[2024-11-02 14:00] VITALS: BP 129/82; PULSE 68; RESP 16; TEMP 97.9; O2SAT 97
--- NOTE | 2024-11-02 16:45 | DISCHARGE SUMMARY-Residence ---
Discharge Summary Providers to CC Resident Creating Document: SUSAN OJEDA, RES ~ Discharge Summary Admission Diagnosis: Extremity weakness, CVA workup Hospital Course DATE OF ADMISSION: 11/01/2024 DATE OF DISCHARGE: 11/02/2024 Hospital course: 69 years old female with history of hypertension, TIA, chronic back pain status post laminectomy presented to the ED with numbness of her left upper extremity and left side of face associated with bilateral lower extremity weakness and numbness. Patient admitted with following workup and treatment Weakness/numbness Stroke workup started Possible TIA NIHSS 0, [facility] consulted who recommended brain MRI, MRI C-spine, MR angio neck W contrast and MR angio head w/o contrast Head CT: No acute intracranial abnormality. Urine tox is negative TSH normal, one electrolyte imbalance, no leukocytosis no anemia, ESR normal, UA normal Neurology was consulted who recommended MRI Brain without contrast, MRI C spine, MR Angiogram Neck with contrast, MR Angiogram Head without contrast. However As imaging department we do not have the power injector for MRA with contrast, we ordered head and neck CTA: Which showed widely patent head arteries of head and neck. MRI C-spine: C5-C6 and C6-C7 posterior disc osteophyte complexes approach and may about the ventral cord. No abnormal cord signal. Mild right C4-C5 neuroforaminal narrowing. MRI head:No acute or recent infarct. Mild cerebral volume loss and mild chronic microvascular ischemic change. ECHO: Normal LV size and wall thickness. Overall systolic function is normal. LVEF is 65%. RIGHT VENTRICLE :RV appears normal in size and contractility. RVSP is estimated at 33 mmHG. ATRIA : Left atrium is mildly dilated. AORTIC VALVE ;Trileaflet AV appears sclerotic without stenosis. No insufficiency. Restarted aspirin, clopidogrel 75 mg started today as neurology recommendation, continue atorvastatin 80 mg Essential Hypertension Patient is taking losartan 50 mg daily, amlodipine 5 mg daily, metoprolol 100 mg daily On admission blood pressure was 158/88, she received blood pressure medication at home Numbness/weakness Symptoms less likely due to be stroke due to bilateral symptoms, possibly due to radiculopathy Permissive hypertension for admission day, we hold the medication and patient blood pressure was controlled Laboratory Tests Test 11/01/24 08:55 11/01/24 09:00 11/01/24 14:02 11/01/24 16:03 White Blood Count 4.3 X10'3 Red Blood Count 4.47 X10'6 Hemoglobin 13.5 g/dl Hematocrit 39.3 % Mean Corpuscular Volume 87.8 FL Mean Corpuscular Hemoglobin 30.1 PG Mean Corpuscular Hemoglobin Concent 34.3 g/dL Red Cell Distribution Width 13.2 % Platelet Count 239 X10'3 Mean Platelet Volume 8.6 FL Neutrophils (%) (Auto) 45.0 % Lymphocytes (%) (Auto) 38.0 % Monocytes (%) (Auto) 12.4 % Eosinophils (%) (Auto) 3.4 % Basophils (%) (Auto) 1.2 % Neutrophils # (Auto) 1.9 X10'3 Lymphocytes # (Auto) 1.6 X10'3 Monocytes # (Auto) 0.5 X10'3 Eosinophils # (Auto) 0.1 X10'3 Basophils # (Auto) 0.1 X10'3 CBC Comment Erythrocyte Sedimentation Rate 13 MM/HR Sodium Level 143 MMOL/L Potassium Level 3.8 MMOL/L Chloride Level 105 MMOL/L Carbon Dioxide Level 30.1 MMOL/L Anion Gap 8 Blood Urea Nitrogen 4 MG/DL Creatinine 0.91 MG/DL Estimated GFR/1.73 m2 61 ML/MIN BUN/Creatinine Ratio 4.4 Glucose Level 98 MG/DL Hemoglobin A1c 5.7 % Calcium Level 8.9 MG/DL Total Bilirubin 0.8 MG/DL Aspartate Amino Transf (AST/SGOT) 27 U/L Alanine Aminotransferase (ALT/SGPT) 29 U/L Alkaline Phosphatase 80 IU/L Troponin I High Sensitivity 11 ng/L 12 ng/L C-Reactive Protein < 0.05 MG/DL Total Protein 7.3 G/DL Albumin 3.7 G/DL Globulin 3.6 G/DL Albumin/Globulin Ratio 1.0 Thyroid Stimulating Hormone (TSH) 1.30 ulU/ml Chemistry Comments Ethyl Alcohol Level < 10 MG/DL Urine Specimen Description Cln catch midstream Urine Color Straw Urine Clarity Clear Urine pH 7.0 Urine Specific [place] <=1.005 Urine Protein Negative mg/dl Urine Glucose (UA) Negative mg/dl Urine Ketones Negative mg/dl Urine Occult Blood Negative Urine Nitrite Negative Urine Bilirubin Negative Urine Urobilinogen 0.2 E.U/dL Urine Leukocyte Esterase Negative Urine Culture Indicated Not ind Volume Urine Centrifuged 10 ml Urine Comment Urine Opiates Screen Negative Urine Methadone Screen Negative Urine Fentanyl Screen Negative Urine Barbiturates Screen Negative Urine Phencyclidine Screen Negative Urine Amphetamines Screen Negative Urine Benzodiazepines Screen Negative Urine Cocaine Screen Negative Urine Cannabinoids Screen Negative Drug Screen Comment Troponin I High Sens Percent Delta 9 % Troponin I Hi Sens Absolute Change 1 ng/L Test 11/02/24 05:07 White Blood Count 5.0 X10'3 Red Blood Count 4.14 X10'6 Hemoglobin 12.5 g/dl Hematocrit 36.4 % Mean Corpuscular Volume 87.8 FL Mean Corpuscular Hemoglobin 30.2 PG Mean Corpuscular Hemoglobin Concent 34.4 g/dL Red Cell Distribution Width 13.3 % Platelet Count 216 X10'3 Mean Platelet Volume 8.4 FL Neutrophils (%) (Auto) 51.8 % Lymphocytes (%) (Auto) 34.0 % Monocytes (%) (Auto) 10.3 % Eosinophils (%) (Auto) 3.3 % Basophils (%) (Auto) 0.6 % Neutrophils # (Auto) 2.6 X10'3 Lymphocytes # (Auto) 1.7 X10'3 Monocytes # (Auto) 0.5 X10'3 Eosinophils # (Auto) 0.2 X10'3 Basophils # (Auto) 0.0 X10'3 CBC Comment Sodium Level 142 MMOL/L Potassium Level 3.1 MMOL/L Chloride Level 107 MMOL/L Carbon Dioxide Level 28.0 MMOL/L Anion Gap 7 Blood Urea Nitrogen 4 MG/DL Creatinine 0.88 MG/DL Estimated GFR/1.73 m2 64 ML/MIN BUN/Creatinine Ratio 4.5 Glucose Level 96 MG/DL Calcium Level 8.4 MG/DL Magnesium Level 2.2 MG/DL Total Bilirubin 0.6 MG/DL Aspartate Amino Transf (AST/SGOT) 25 U/L Alanine Aminotransferase (ALT/SGPT) 24 U/L Alkaline Phosphatase 69 IU/L Total Protein 6.5 G/DL Albumin 3.3 G/DL Globulin 3.2 G/DL Albumin/Globulin Ratio 1.0 Triglycerides Level 110 MG/DL Cholesterol Level 154 MG/DL LDL Cholesterol 83 MG/DL HDL Cholesterol 50 MG/DL Cholesterol/HDL Ratio 3.1 Chemistry Comments Physical exam on discharge day: General: Awake and Alert, no acute distress. HEENT: Conjunctiva pink, Sclera clear, Mucus Membranes moist. Neck: Supple without masses and tenderness. Resp: Lungs clear to auscultation bilaterally. Heart: Regular Rate and rhythm, normal S1 and S2 Abdomen: Soft and non tender no organomegaly Extremities: No cyanosis,clubbing or edema. Skin: Warm and Dry. Neurological: Speech is clear, alert, and oriented x 4, no gross neurological deficits Strength upper and lower extremity 5/5, sensation symmetric bilaterally [id number] normal Extraocular movement intact, visual field normal Negative Babinski Symmetric reflexes 1+ elbow, ankle, patellar Patient's symptoms improved sooner than expected and discharged home in a stable situation with following instruction Please follow-up with your PCP in one week. Follow-up with spinal specialist as an outpatient regarding C-spine MRI finding. Measure your blood pressure at home. The goal of systolic blood pressure is less than 140. Avoid dehydration, keep yourself hydrated. Return to ED if you have any worsening symptoms. Discharge Diagnosis\Comment: Transient Weakness/numbness of left upper extremity and lower extremities Possible TIA Uncontrolled hypertension Mild right C4-C5 neuroforaminal narrowing. C5-C6 and C6-C7 posterior disc osteophyte Operations\Procedures: None Consultants: [facility] tele neurology Complications: None Condition on DC: Stable Continued Medications: Amlodipine Besylate (Amlodipine Besylate) 5 Mg Tablet 5 MG PO DAILY, #30 TAB Aspirin (Ecotrin*) 81 Mg Tablet.dr 1 TAB PO Q24H, #90 TAB.SR Atorvastatin Calcium* (Lipitor*) 80 Mg Tablet 1 TAB PO DAILY for 30 Days, #30 TAB Losartan Potassium* (Cozaar*) 25 Mg Tablet 2 TAB PO DAILY, TAB Metoprolol Succinate (Metoprolol Succinate) 100 Mg Tab.sr.24h 1 TAB PO DAILY Discharge Summary: see hospital course *Problems/Diagnosis: (1) TIA (transient ischemic attack) Status: Acute Total Time Spent on D/C: > 30 Minutes Date of Service: Nov 02, 2024 Billing Provider: NAMITA SAENZ MD Common Visit Codes: 44027-OZV/OBS DISCH DAY >30min SUSAN OJEDA RES Nov 02, 2024 16:45 NAMITA SAENZ MD Nov 03, 2024 07:08
[2024-11-02] MEDS ORDERED: CLOP75TA34 PO (18:05)
--- NOTE | 2024-11-04 12:15 | CARDIOLOGY REPORT ---
APPROVED REPORT EXAM: Comprehensive 2D, Doppler, and color-flow Echocardiogram. Patient Location: [facility] Blood Pressure: 131/77 mmHg Heart Rate: 60 bpm Rhythm: NSR Indications Hypertension Head Sampler is BV. Vy MD Previous echo 07/20/22 [facility] 60% EF ; tr MR TR PI 2D Dimensions LA Diam4.0 cm IVSd 1.1 (0.7-1.1cm) LVDd 5.3 cm PWd 1.0 (0.7-1.1cm) IVSs 1.5 (0.8-1.2cm) LVDs 3.0 (2.5-4.0cm) Aortic Root(2D) 3.0 cm PWs 1.3 (0.8-1.2cm) LVOT Diameter 2.06 (1.8-2.4cm) LVEF(%) 74.5 (>50%) Ao Asc Diam.3.67 cmIVC 22.37 mm FS (%) 43.7 % SV 98.7 ml CO 6.0 L/min M-Mode Dimensions MV EPSS 0.8 (<0.5cm) Aortic Valve AoV Peak Andrea. 165.6 cm/s AoV VTI 34.9 cm AO Peak GR. 11.0 mmHg AO Mean GR. 6 mmHg LVOT VTI 22.09 cm LVOT Peak Andrea. 99.0 cm/s DALE(VTI)/BSA 2.11 cm2/m2 DALE (VTI) 2.11 cm2 Mitral Valve MV E Velocity 73.3 cm/s MV Peak Gr. 3 mmHg MV DECEL TIME 212 ms MV A Velocity 97.9 cm/s MV PHT 68 ms E/A Ratio 0.7 MVA (PHT) 3.24 cm2 MV VMax80.5 cm/s TDI Medial E' P. V 7.12 cm/s E/Medial E' 10.3 Tricuspid Valve TR P. Velocity 241 cm/s RAP ESTIMATE 10 mmHg TR Peak Gr. 23 mmHg RVSP 33 mmHg Pulmonary Vein S1 Velocity 51.9 cm/s D2 Velocity 33.0 cm/s PVa Wvfpmegi17.2 cm/s PVa [id number] msec LEFT VENTRICLE Normal LV size and wall thickness. Overall systolic function is normal. Overall LVEF is 65%. RIGHT VENTRICLE RV appears normal in size and contractility. RVSP is estimated at 33 mmHG. ATRIA Left atrium is mildly dilated. AORTIC VALVE Trileaflet AV appears sclerotic without stenosis. No insufficiency. MITRAL VALVE MV is thickened with mild annular thickening and no stenosis. Trace mitral regurgitation. TRICUSPID VALVE The tricuspid valve is normal in structure. Trace tricuspid regurgitation. PULMONIC VALVE The pulmonary valve is normal in structure. Trace pulmonic regurgitation. GREAT VESSELS The aortic root is normal in size. The ascending aorta measured at 3.7 cm. IVC is dilated and collaps es greater than 50% with inspiration. PERICARDIUM There is no pericardial effusion. Other Information Study Quality: Adequate Conclusion Overall LVEF is 65%. Normal LV size and wall thickness. Overall systolic function is normal. RV appears normal in size and contractility. RVSP is estimated at 33 mmHG. Trileaflet AV appears sclerotic without stenosis. No insufficiency. Trace mitral regurgitation. Trace tricuspid regurgitation. Trace pulmonic regurgitation. There is no pericardial effusion.
== END 2024-11-02 18:10 | disposition home or self-care (01) | DRG 69 ==
LOC: ER 08:23 → ED HOLD 12:38 → UNDOADMIN 12:38 → ED HOLD 15:38 → ORTHO 4S 17:35 → UNDODISIN 11-02 17:50
PROVIDERS: ADMIT Internal Medicine; ATTEND Internal Medicine
PROC: B3281ZZ Computerized Tomography (CT Scan) of Bilateral Internal Carotid Arteries using Low Osmolar Contrast (ICD-10-PCS; principal; 2024-11-01)
PROC: B3201ZZ Computerized Tomography (CT Scan) of Thoracic Aorta using Low Osmolar Contrast (ICD-10-PCS; 2024-11-01)
PROC: B32R1ZZ Computerized Tomography (CT Scan) of Intracranial Arteries using Low Osmolar Contrast (ICD-10-PCS; 2024-11-01)
DX: G45.9 Transient cerebral ischemic attack, unspecified (principal); I10 Essential (primary) hypertension; K21.9 Gastro-esophageal reflux disease without esophagitis; E78.5 Hyperlipidemia, unspecified
CPT/HCPCS: 36415; 70450; 70496; 70498; 70551; 80053; 80061; 80305; 80320; 81003; 82607; 83036; 83735; 84443; 84484; 85025; 85651; 86140; 87081; 93005; 93306; 97116; 97162; 97530; 99291; G0378; J1650; J2470; J7030; Q9967